=== PATIENT | female | born 2000 | race Caucasian/White ===

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

== ENCOUNTER 2019-04-04 14:23 | Emergency (ER) | payer OTHER ==
--- OUTSIDE RECORDS SUMMARY | 2019-04-04 14:30 | XMS REPORT | Continuity of Care Document ---
:2000 External Reference #:[id number] Author Name Junior Jarrett M.D. (transmitted by agent of provider Ramos Eng) Address [address] [place] [id number] Care Team Providers Name Role Phone Jacqui Pruett MD - Pediatrics Care Team Information Senior Environmental Technician Problems Active Problems Provider Date Obstructive sleep apnea syndrome Jenny Hernandez DNP, RN, CREAM DIPPER- Onset: 01/2019 Note: Mild. NPSG 11/18/18: AHI 8.1/hour, yolanda 88% (wt 86#, BMI 15.7) Social History Type Date Description Comments Sex Unknown Tobacco Use Start: Unknown Never Smoked Cigarettes Smoking Status Reviewed: 02/10/19 Never Smoked Cigarettes ETOH Use Drinks Alcoholic Beverages Occasionally Tobacco Use Start: Unknown Patient has never smoked Recreational Drug Use Sporadically uses Marijuana Exercise Type/Frequency Does not exercise Allergies, Adverse Reactions, Alerts Active Allergies Reaction Severity Comments Date Cephalexin Difficulty breathing, Facial swelling 08/15/2018 Medications Active Medications SIG Qnty Indications Ordering Provider Date Fluoxetine HCL Take One Capsule Unknown 40mg By Mouth Every Day Capsules in addition to 10 mg Fluoxetine HCL 1 by mouth every Unknown 10mg day in addition to Capsules 40 mg Ibuprofen As needed Unknown 200mg Tablets Prevacid 1 by mouth every Unknown 30mg Capsules day DR Famotidine 1 by mouth every Unknown 40mg Tablets day Immunizations Description No Information Available Vital Signs Date Vital Result Comment 02/10/2019 2:13pm Height 62 inches 5'2" Weight 90.00 lb Heart Rate 85 /min BP Systolic Sitting 110 mmHg BP Diastolic Sitting 64 mmHg Respiratory Rate 16 /min Body Temperature 97.5 F Pain Level 0 O2 % BldC Oximetry 98 % BMI (Body Mass Index) 16.5 kg/m2 Height Percentile 19 % Weight Percentile <3rd 01/30/2019 10:05am Height 62 inches 5'2" Weight 90.00 lb Heart Rate 92 /min BP Systolic Sitting 100 mmHg BP Diastolic Sitting 70 mmHg O2 % BldC Oximetry 97 % BMI (Body Mass Index) 16.5 kg/m2 Height Percentile 19 % Weight Percentile <3rd Results Description No Information Available Procedures Date Code Description Status 11/18/2018 31397 Polysomnography Sleep Staging 4+ Parameters Completed 08/18/2018 74825 Sleep Study Unattended,HRT Rate,Oxygen Sat,Resp Completed Effort/Airflow Medical Devices Description No Information Available Encounters Type Date Location Provider Dx Diagnosis Office Visit 01/30/2019 [facility] Jenny Hernandez, G47.33 Obstructive sleep 10:00a [facility], CREAM DIPPER-WAI apnea (adult) [facility] (pediatric) G47.10 Hypersomnia, unspecified Office Visit 12/12/2018 [facility] Jenny G47.33 Obstructive sleep 10:00a [facility], [facility] G47.10 Hypersomnia, unspecified Office Visit 08/15/2018 10:00a [facility] Blanca G47.9 Sleep disorder, [facility] unspecified [facility] G47.10 Hypersomnia, unspecified Assessments Date Code Description Provider 01/30/2019 G47.33 Obstructive sleep apnea (adult) Jenny Hernandez DNP, RN, CREAM DIPPER-WAI (pediatric) 01/30/2019 G47.10 Hypersomnia, unspecified Jenny Hernandez DNP, RN, CREAM DIPPER-BC 12/12/2018 G47.33 Obstructive sleep apnea (adult) Jenny Hernandez DNP RN, CREAM DIPPER-BC (pediatric) 12/12/2018 G47.10 Hypersomnia, unspecified Jenny Hernandez DNP, RN, CREAM DIPPER-BC 11/18/2018 G47.33 Obstructive sleep apnea (adult) Blanca Tyler MD (pediatric) 08/18/2018 G47.9 Sleep disorder, unspecified Blanca Tyler MD 08/18/2018 G47.10 Hypersomnia, unspecified Blanca Tyler MD 08/15/2018 G47.9 Sleep disorder, unspecified Blanca Tyler MD 08/15/2018 G47.10 Hypersomnia, unspecified Blanca Tyler MD Plan of Treatment Future Appointment(s):03/27/2019 11:00 am - Jenny Hernandez DNP, RN, CREAM DIPPER-BC at [facility]01/30/2019 - Jenny Hernandez DNP, RN, CREAM DIPPER- BCG47.33 Obstructive sleep apnea (adult) (pediatric)Comments:Adjustment to setting for aerophagiaFollow up:6 weeksRecommendations:Continue PAP device, set up 2-weeks ago, unable to tolerate pressure due to aerophagia, recommend a change to CPAP auto 4-6, EPR 3. Set at appointment today. Call Sleep Center if problem persists. Obtain MyAir for machine to check AHI, want it to be <5/ hour. Cleaning Wipe off mask daily (baby wipe-no scent, or warm water) Clean mask, tubing, filter, and water chamber weekly in mild no scent dish soap and water. Hang to dry. If you have any sleepiness while driving you MUST avoid operating a vehicle or machinery. If you have difficulty with your equipment, or need to replace your mask or hoses, please contact your homecare agency. A weight change of 20 pounds or more may have an effect on your equipment; if you are experiencing problems please call for an appointment. If you have any further questions, please call the [facility] at [phone].G47.10 Hypersomnia, unspecifiedRecommendations:Should improve with treatment. Functional Status Description No Information Available Mental Status Description No Information Available Referrals Refer to Reason for Referral Status Appt Date Junior Jarrett MD sleep apnea and hypersomnia Upper airway Created exam to evaluate if surgical finding for cause. Tonsils present but small, 1+, Pt to start CPAP auto. [address] [place] [address] [phone]
--- OUTSIDE RECORDS SUMMARY | 2019-04-04 14:30 | XMS REPORT | Continuity of Care Document ---
:1999 External Reference #:[id number] Author Name Jenny Hernandez DNP, RN, BUILD AND DEPLOYMENT ENGINEER-BC (transmitted by agent of provider Alla Rain) Address [address] [facility], [address] [place] [id number] Care Team Providers Name Role Phone Jacqui Pruett MD - Pediatrics Care Team Information Real Estate Closer [phone] Problems Active Problems Provider Date Obstructive sleep apnea syndrome Jenny Hernandez DNP, RN, BUILD AND DEPLOYMENT ENGINEER-BC Onset: 01/2019 Note: Mild. NPSG 11/18/18: AHI 8.1/hour, yolanda 88% (wt 86#, BMI 15.7) Social History Type Date Description Comments Sex Unknown Tobacco Use Start: Unknown Never Smoked Cigarettes Smoking Status Reviewed: 03/27/19 Never Smoked Cigarettes ETOH Use Drinks Alcoholic [...] Available Vital Signs Date Vital Result Comment 03/27/2019 10:36am Height 62 inches 5'2" Weight 90.00 lb Heart Rate 110 /min BP Systolic 110 mmHg BP Diastolic 770 mmHg O2 % BldC Oximetry 98 % BMI (Body Mass Index) 16.5 kg/m2 Height Percentile 19 % Weight Percentile <3rd 02/10/2019 2:13pm Height 62 inches 5'2" Weight [...] Available Procedures Date Code Description Status 11/18/2018 80644 Polysomnography Sleep Staging 4+ Parameters Completed Medical Devices Description No Information Available Encounters Type Date Location Provider Dx Diagnosis Office Visit 02/10/2019 [facility] G47.33 Obstructive sleep 2:00p [facility] Jarrett apnea (adult) [place] (pediatric) G47.10 Hypersomnia, unspecified Office Visit 01/30/2019 [facility] Jenny G47.33 Obstructive sleep 10:00a [facility] Hernandez RN, apnea (adult) [facility] (pediatric) G47.10 Hypersomnia, unspecified Office Visit 12/12/2018 [facility] Jenny G47.33 Obstructive sleep 10:00a [facility] Hernandez RN, apnea (adult) Radha [facility]ALL (pediatric) G47.10 Hypersomnia, unspecified Assessments Date Code Description Provider 03/27/2019 G47.33 Obstructive sleep apnea (adult) Jenny Hernandez DNP, RN, [facility] (pediatric) 03/27/2019 G47.10 Hypersomnia, unspecified Jenny Hernandez DNP, RN, [facility]-WAI 02/10/2019 G47.33 Obstructive sleep apnea (adult) Junior Jarrett M.D. (pediatric) 02/10/2019 G47.10 Hypersomnia, unspecified Junior Jarrett M.D. 01/30/2019 G47.33 Obstructive sleep apnea (adult) Jenny Hernandez DNP, RN, [facility] (pediatric) 01/30/2019 G47.10 Hypersomnia, unspecified Jenny Hernandez DNP, RN, [facility] 12/12/2018 G47.33 Obstructive sleep apnea (adult) Jenny Hernandez DNP, RN, [facility] (pediatric) 12/12/2018 G47.10 Hypersomnia, unspecified Jenny Hernandez DNP, RN, BUILD AND DEPLOYMENT ENGINEER- 11/18/2018 G47.33 Obstructive sleep apnea (adult) Blanca Tyler MD (pediatric) Plan of Treatment Future Appointment(s):06/05/2019 9:30 am - Jenny Hernandez DNP, RN, BUILD AND DEPLOYMENT ENGINEER- at [facility]03/27/2019 - Jenny Hernandez DNP, RN, [facility]- BCG47.33 Obstructive sleep apnea (adult) (pediatric)Comments:Mild. NPSG 11/18/18 : AHI 8.1/hour, yolanda 88% (wt 86#, BMI 15.7) On CPAP 4-6 cm AHI 0.9/ hourFollow up:2 monthsRecommendations:Continue PAP device, Benefitting and try to increase compliance with treatment. Cleaning Wipe off mask daily (baby wipe- no scent, or warm water) Clean mask, tubing, filter, and water chamber weekly inmild no scent dish soap and water. Hang to dry. If you have any sleepiness while driving you MUSTavoid operating a vehicle or machinery. If you have difficulty with your equipment, or need to replace your mask or hoses, please contact your homecare agency. A weight change of 20 pounds or more may have an effect on your equipment; if you are experiencing problems please call for an appointment. If you have any further questions, please call the [facility] Center at [phone].G47.10 Hypersomnia, unspecifiedRecommendations:Should continue to improve with consistent use. Functional Status Description No Information Available Mental Status Description No Information Available Referrals Refer to Reason for Referral Status Appt Date Junior Jarrett MD sleep apnea and hypersomnia Upper airway Created exam to evaluate if surgical finding for cause. Tonsils present but small, 1+, Pt to start CPAP auto. [address] [place] [address] [phone]
[2019-04-04 14:42] VITALS: BP 110/69
--- NOTE | 2019-04-04 14:50 | UC ---
Complaint Female HPI - HPI Summary HPI Summary: 18 yo female presents with UTI symptoms. She tells me that for the last day she has had bladder pressure, urinary frequency, and burning during urination. She has had UTIs in the past and this feels the same. She denies fever, chills, abdominal pain, n/v, flank pain. No vaginal bleeding or discharge. - History Of Current Complaint Chief Complaint: UCGU Stated Complaint: URINARY Time Seen by Provider: 04/04/19 14:50 Hx Obtained From: Patient Hx Last Menstrual Period: 04/03/19 Onset/Duration: Sudden Onset Severity Initially: Mild Severity Currently: Mild Pain Intensity: 3 Pain Scale Used: 0-10 Numeric - Allergies/Home Medications Allergies/Adverse Reactions: Allergies Allergy/AdvReac Type Severity Reaction Status Date / Time Cephalosporins Allergy Anaphylatic Verified 04/04/19 14:38 Shock lactose intolerance Allergy Diarrhea Uncoded 04/04/19 14:38 PMH/Surg Hx/FS Hx/Imm Hx GI/ History: Gastroesophageal Reflux Psychological History: Anxiety, Depression - Surgical History Surgical History: Yes Surgery Procedure, Year, and Place: g-tube placement; removed October 2018 - Family History Known Family History: Positive: Unknown - pt is adopted from [place], unknown family history - Social History Alcohol Use: Occasionally Substance Use Type: Marijuana Substance Use Comment - Amount & Last Used: occasionally Smoking Status (MU): Never Smoked Tobacco Have You Smoked in the Last Year: No - Immunization History Most Recent Influenza Vaccination: 0480-5805 Most Recent Pneumonia Vaccination: none Hx Tetanus, Diphtheria Vaccination: Yes Vaccination Up to Date: Yes Review of Systems All Other Systems Reviewed And Are Negative: No Constitutional: Positive: Negative Skin: Positive: Negative Respiratory: Positive: Negative Cardiovascular: Positive: Negative Gastrointestinal: Positive: Negative Genitourinary: Positive: Dysuria Neurological: Positive: Negative Psychological: Positive: Negative Physical Exam - Summary Physical Exam Summary: GENERAL: NAD. WDWN. No pain distress. SKIN: No rashes, sores, lesions, or open wounds. NECK: Supple. Nontender. No lymphadenopathy. CHEST: CTAB. No r/r/w. No accessory muscle use. Breathing comfortably and in no distress. CV: RRR. Pulses intact. Cap refill <2seconds ABDOMEN: Soft. NTTP. No distention or guarding. No CVA tenderness. Bowel sounds present NEURO: Alert. PSYCH: Age appropriate behavior. Triage Information Reviewed: Yes Vital Signs: Initial Vital Signs Temp 98.7 F 04/04/19 14:39 Pulse 110 04/04/19 14:39 Resp 16 04/04/19 14:39 BP 110/69 04/04/19 14:39 Pulse Ox 98 04/04/19 14:39 Laboratory Tests 04/04/19 04/04/19 15:09 15:11 POC Urine Color Yellow POC Urine Clarity Clear POC Urine pH 7.0 POC Ur Specif [place] 1.015 POC Urine Protein Negative POC Ur Glucose (UA) Negative POC Urine Ketones Negative POC Urine Blood Negative POC Urine Nitrite Negative POC Urine Bilirubin Negative POC Urine Urobilinogen 0.2 POC U Leukocyte Esteras Trace POC Ur Test Negative Vital Signs Reviewed: Yes Complaint Female Dx - Course Course Of Treatment: UA with trace leuks - given that she is having UTI symptoms, will treat as UTI today. Urine sent for culture - Differential Dx/Diagnosis Provider Diagnosis: UTI (urinary tract infection) Discharge ED - Sign-Out/Discharge Documenting (check all that apply): Patient Departure All imaging exams completed and their final reports reviewed: No Studies - Discharge Plan Condition: Stable Disposition: HOME Prescriptions: Nitrofurantoin Monohyd/M-Cryst [Macrobid 100 mg Capsule] 100 mg PO BID #10 cap Phenazopyridine 200 mg (NF) [Pyridium 200 MG tab *] 200 mg PO TID #6 tab Patient Education Materials: Urinary Tract Infection in Women (ED) Referrals: Jacqui Pruett MD [Primary Care Provider] - Additional Instructions: If you develop a fever, shortness of breath, chest pain, new or worsening symptoms - please call your PCP or go to the ED immediately. - Billing Disposition and Condition Condition: STABLE Disposition: Home
== END 2019-04-04 15:21 | disposition home or self-care (01) ==
LOC: UCCORT 14:23
DX: N39.0 Urinary tract infection, site not specified (principal); Z88.1 Allergy status to other antibiotic agents; Z91.011 Allergy to milk products
CPT/HCPCS: 81003; 84702; 87086; 99212; G0463

== ENCOUNTER 2019-06-01 17:05 | Emergency (ER) | payer OTHER ==
[2019-06-01 19:28] VITALS: BP 122/64
[2019-06-01 19:39] LABS: Influenza B Molecular POSITIVE (Negative)
--- NOTE | 2019-06-01 19:40 | UC ---
FLU HPI - HPI Summary HPI Summary: Pt present with body aches, fever, congestion, cough x 36 hours no nausea, vomiting. decreased appetite. Pt took APAP this am Sibling with + influenza no rash Pt not did not get flu vaccine medications as entered in the EMR by state game protector Reviewed this visit - History of Current Complaint Chief Complaint: UCRespiratory Stated Complaint: FLU LIKE SYMPTOMS Time Seen by Provider: 06/01/19 19:25 Hx Obtained From: Patient Hx Last Menstrual Period: 05/23/19 Severity Currently: Moderate Severity Initially: Moderate Pain Intensity: 4 - Allergy/Home Medications Allergies/Adverse Reactions: Allergies Allergy/AdvReac Type Severity Reaction Status Date / Time Cephalosporins Allergy Anaphylatic Verified 06/01/19 19:23 Shock lactose intolerance Allergy Diarrhea Uncoded 06/01/19 19:23 PMH/Surg Hx/FS Hx/Imm Hx Previously Healthy: Yes - Surgical History Surgical History: Yes Surgery Procedure, Year, and Place: g-tube placement; removed October 2018 - Family History Known Family History: Positive: Unknown - pt is adopted from [place], unknown family history - Social History Occupation: Employed Full-time Lives: With Family Alcohol Use: Occasionally Substance Use Type: Marijuana Substance Use Comment - Amount & Last Used: occasionally Smoking Status (MU): Never Smoked Tobacco Have You Smoked in the Last Year: No - Immunization History Most Recent Influenza Vaccination: 4366-1296 Most Recent Pneumonia Vaccination: none Hx Tetanus, Diphtheria Vaccination: Yes Vaccination Up to Date: Yes Review of Systems All Other Systems Reviewed And Are Negative: Yes Constitutional: Positive: Fever ENT: Positive: Sore Throat, Nasal Discharge, Sinus Congestion, Sinus Pain/ Tenderness Respiratory: Positive: Cough Cardiovascular: Positive: Negative Gastrointestinal: Positive: Negative Genitourinary: Positive: Negative Physical Exam - Summary Physical Exam Summary: Vital Signs Reviewed: Yes A+Ox3, tired appearing, congested Eyes: Conjunctiva Clear, LUIZ. 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 Skin: Positive: no rash, no ecchymosis Triage Information Reviewed: Yes Vital Signs: Initial Vital Signs Temp 97.9 F 06/01/19 19:23 Pulse 114 06/01/19 19:23 Resp 16 06/01/19 19:23 BP 122/64 06/01/19 19:23 Pulse Ox 97 06/01/19 19:23 Flu Course/Dx - Course Course Of Treatment: Pt presents to with progressive fever, chills, body aches, cough x 36 hours On exam VS reviewed pt with congestion, pnd, cough - tired, non toxic + influenza humidified air secretion precaution motrin/apap return precaution work note - Differential Dx/Diagnosis Provider Diagnosis: Influenza Discharge ED - Sign-Out/Discharge Documenting (check all that apply): Patient Departure All imaging exams completed and their final reports reviewed: No Studies - Discharge Plan Condition: Stable Disposition: HOME Prescriptions: Oseltamivir CAP* [Tamiflu CAP*] 75 mg PO BID #10 cap Patient Education Materials: Influenza (ED) Referrals: Jacqui Pruett MD [Primary Care Provider] - Additional Instructions: - Stay well hydrated. Drink plenty of non-alcoholic, non-caffinated beverages. - Take Tamiflu as prescribed - Alternate ibuprofen (Advil, Motrin) 600mg and Tylenol 1000mg every 3 hours for pain or fever. Take with food. Do NOT take for more than 4-5 days. - These infections are spread by secretions - do NOT share eating or drinking utensils - clean items you share with other people such as cell phones, computer mouse, TV remote, computer tablets,etc. Once you start to feel better, change your toothbrush and your pillowcase. - get plenty of restful sleep - humidify the air in the room where you sleep - boil water, run a hot steam shower, vaporizer, cups of water by heat register - okay to take over the counter decongestant and cough medication - contact your doctor or return with questions or concerns - Billing Disposition and Condition Condition: STABLE Disposition: Home
== END 2019-06-01 19:53 | disposition home or self-care (01) ==
LOC: UCCORT 17:05
DX: J10.1 Influenza due to other identified influenza virus with other respiratory manifestations (principal); Z88.1 Allergy status to other antibiotic agents; Z91.011 Allergy to milk products
CPT/HCPCS: 99212; G0463